=== PATIENT | male | born 1970 | race Caucasian/White ===

== ENCOUNTER 2017-07-26 21:40 | Emergency (ER) | payer BC, MEDICAID, MEDICARE ==
--- NOTE | 2017-07-26 22:12 | ED Physician Chart ---
ED Chief Complaint/HPI - Patient Information Date Seen:: 07/26/17 Time Seen:: 21:55 Chief Complaint:: dizziness History of Present Illness:: Patient had sudden onset of vertigo about one half hour ago. He felt like his head was spinning. He became diaphoretic. Patient vomited twice. Paramedics were called. Paramedics gave 4 mg of Zofran intravenously. Patient has had no prior similar episodes of vertigo. Allergies:: Allergies Allergy/AdvReac Type Severity Reaction Status Date / Time No Known Allergies Allergy Verified 07/26/17 21:54 Vitals:: Vital Signs - 8 hr 07/26/17 21:45 Temp 98.6 F HR 78 RR 18 BP 167/93 O2 Sat % 96 Historian:: Patient Review:: Nurse's Note Reviewed ED Review of Systems - Review of Systems General/Constitutional: No fever, No chills Skin: No skin lesions Head: Other (see below under neurological) Eyes: Acuity change ENT: No earache, No nasal drainage, No tinnitus Neck: No neck pain, No swelling Cardio Vascular: No chest pain, No palpitations Pulmonary: No SOB, No cough, No wheezing GI: Nausea, Vomiting, No diarrhea G/U: No dysuria, No hematuria Musculoskeletal: No bone or joint pain, No back pain, No muscle pain Endocrine: No polyuria, No polydipsia Psychiatric: No prior psych history ED Past Medical History - Past Medical History Past Medical History: HTN, Dyslipidemia, Other (hyperlipidemia) Family History: Diabetes Melitus, HTN, Other (arthritis) Social History: Non Smoker, Other (occasional alcohol) Surgical History: other (right knee) Psychiatricy History: None Medication: Reviewed Family Medical History - Family Member Mother Ethnicity: Non- Living Status: Still Living Hx Family Hypertension: Yes Hx Family Diabetes: Yes ED Physical Exam - Physical Examination General/Constitutional: Awake, Alert Head: Atraumatic Eyes: Lids, conjuctiva normal, PERRL Other Eyes comments:: No nystagmus; extraocular movements are intact Skin: Nl inspection, No rash, No skin lesions, No ecchymosis, Well hydrated, No lymphadenopathy ENMT: External ears, nose nl, TM canals nl, Nasal exam nl, Lips, teeth, gums nl , Oropharynx nl, Tonsils nl Neck: No nuchal rigidity Other Neck comments:: No carotid bruits Respiratory: Nl effort/Exclusion, Clear to Auscultation, No Wheeze/Rhonchi/Rales Cardio Vascular: RRR, No murmur, gallop, rubs, NL S1 S2 GI: No tenderness/rebounding/guarding, No organomegaly, No hernia, Normal BS's, Nondistended, No mass/bruits : No CVA tenderness Extremities: No tenderness or effusion, Normal digits & nails Neuro/Psych: No focal deficits Other Neuro/Psych comments:: Strong equal hand grasp; no facial asymmetry; finger to nose and heel to villanueva test intact Misc: Normal back ED Labs/Radiology/EKG Results - Lab Results Results: Laboratory Tests 07/26/17 21:54 POC Glucose 141 H ED Septic Shock - . Is Septic Shock (SBP<90, OR Lactate>4 mmol\L) present?: No - <6hrs of presentation: Vital Signs: Vital Signs - 8 hr 07/26/17 21:45 Temp 98.6 F HR 78 RR 18 BP 167/93 O2 Sat % 96 ED Reassessment (Disposition) - Reassessment Reassessment:: At 2250 patient's nausea had totally subsided and his vertigo was 80% improved. A cerebellar infarct must always be in the differential diagnosis of sudden onset of vertigo but that diagnosis is very unlikely since the patient had no nystagmus. Reassessment Condition:: Improved - Aftercare/Follow up Instructions Aftercare/Follow-Up Instructions:: Counseled pt regarding lab results/diagnosis & need follow up, Refer to Discharge Instructions - Patient Disposition Discharge/Transfer:: Home Condition at Disposition:: Stable, Improved
[2017-07-26 22:29] LABS: % BASOPHILS 0.4 % (0.0-2.0); % EOSINOPHILS 5.7 % (0.0-5.0); % LYMPHOCYTES 29.5 % (20.0-50.0); % MONOCYTES 6.1 % (2.0-10.0); % NEUTROPHILS 58.3 % (40.0-80.0); HEMATOCRIT 40.6 % (41.0-60); HEMOGLOBIN 14.1 gm/dL (12-16); MEAN CELL VOLUME 88.2 fl (80-99); MEAN CORPUSCULAR HEMOGLOBIN 30.6 pg (26.0-30.0); MEAN CORPUSCULAR HGB CONC 34.7 pg (28.0-36.0); MEAN PLATELET VOLUME 7.9 fl; NEUTROPHILE ABSOLUTE 4.1 Th/cmm (1.8-8.0); PLATELET COUNT 166 Th/cmm (150-400)
[2017-07-26 22:45] LABS: ANION GAP 12.2 (7.0-16.0); BUN - UREA NITROGEN 15 mg/dL (7-25); BUN/CREATININE RATIO 13.6; CALCIUM SERUM 9.4 mg/dL (8.6-10.3); CARBON DIOXIDE 23.5 mEq/L (21.0-31.0); CHLORIDE 106 mEq/L (98-107); CREATININE - SERUM 1.1 mg/dL (0.7-1.3); GLUCOSE 191 mg/dL (70-105); MAGNESIUM 1.9 mg/dL (1.9-2.7); POTASSIUM SERUM 3.7 mEq/L (3.5-5.1); SODIUM SERUM 138 mEq/L (136-145)
== END 2017-07-26 23:10 | disposition home or self-care (01) ==
LOC: ER 21:40 → EDBD 21:40 → ER 23:10
DX: R42 Dizziness and giddiness (principal); I10 Essential (primary) hypertension; E78.5 Hyperlipidemia, unspecified
CPT/HCPCS: 99285; 96374; 36415; 36416; 82948; 85025; 83036; 83735; 80048; J2405